=== PATIENT | male | born 1960 | race Caucasian/White ===

== ENCOUNTER 2017-11-30 10:58 | Emergency (ER) | payer BC ==
[~2017-11-30] VITALS: Ht 172.7 cm; Wt 79.0 kg
[2017-11-30] MEDS ORDERED: NORCO 5/3251 TABLET PO (12:35)
[2017-11-30 13:28] VITALS: BP 140/62
== END 2017-11-30 13:30 | disposition home or self-care (01) ==
LOC: EME 10:58
PROC: 3E0234Z Introduction of Serum, Toxoid and Vaccine into Muscle, Percutaneous Approach (ICD-10-PCS; principal; 2017-11-30)
DX: S42.022A Displaced fracture of shaft of left clavicle, initial encounter for closed fracture (principal); S20.219A Contusion of unspecified front wall of thorax, initial encounter; V18.0XXA Pedal cycle driver injured in noncollision transport accident in nontraffic accident, initial encounter; W61.5 Contact with goose; Y93.55 Activity, bike riding; Y92.89 Other specified places as the place of occurrence of the external cause; Z23 Encounter for immunization
CPT/HCPCS: 71046; 73030; 99281; 99285; L3650